=== PATIENT | male | born 1965 | race Caucasian/White ===

== ENCOUNTER → 2024-08-15 | Outpatient (CLI) | payer BC, SELFPAY ==
--- NOTE | 2024-08-15 15:20 | XR_ITS ---
Examination: Sacroiliac joints 3 views TECHNIQUE: AP, ABRAHAM KHMER sacroiliac joints 3 views Exam date and time: August 15, 2024 1543 hours INDICATIONS: Sacral pain chronic years FINDINGS: Mild bilateral sacroiliitis Symmetrical sacral foramina No sacral fracture IMPRESSION: Mild bilateral sacroiliitis
--- NOTE | 2024-08-15 15:20 | XR_ITS ---
Examination: Cervical spine 3 views Technique one AP lateral coned AP odontoid cervical spine 3 views Exam date and time: August 15, 2024 1538 hours INDICATIONS: Neck pain years, status post cervical spine surgery 2012 FINDINGS: Cervical fusion C4-C6 with anatomic alignment Mild cervical spondylosis No cervical fracture Mild to moderate degenerative disc disease C3-C4 Intact odontoid IMPRESSION: Cervical fusion C4-C6 with anatomic alignment Mild to moderate degenerative disc disease C3-C4
--- NOTE | 2024-08-15 15:20 | XR_ITS ---
Examination: Lumbar spine 3 views Technique one AP lateral coned lateral lower lumbar spine 3 views Exam date and time: August 15, 2024 1540 hours INDICATIONS: Low back pain years. FINDINGS: Adequate alignment lumbar vertebral bodies No lumbar fracture Mild to moderate lumbar degenerative disc disease, most severe L5-S1 No spondylolisthesis IMPRESSION: Mild to moderate diffuse lumbar degenerative disc disease, most severe L5-S1
[2024-08-15 17:14] LABS: C-Reactive Protein < 0.4 mg/dL (0.0-0.9); Uric Acid 7.1 mg/dL (3.7-9.2)
[2024-08-15 17:52] LABS: Sed Rate (ESR) 7 mm/hr (0-20)
[2024-08-16 14:28] LABS: RA Screen Negative (Negative)
[2024-08-21 06:31] LABS: CCP Antibody (IgG)* <16 Units; HLA-B27 Antigen* NEGATIVE (NEGATIVE)
== END | disposition home or self-care (01) ==
LOC: CDIM 15:03 → COPL 15:50
PROVIDERS: PCP Family Medicine; Referring Provider Nurse Practitioner Family; Visit Provider Radiology Diagnostic Radiology
DX: M50.31 Other cervical disc degeneration, high cervical region (principal); Z98.890 Other specified postprocedural states; M51.379 Other intervertebral disc degeneration, lumbosacral region without mention of lumbar back pain or lower extremity pain; M46.1 Sacroiliitis, not elsewhere classified; M19.90 Unspecified osteoarthritis, unspecified site
CPT/HCPCS: 36415; 72040; 72100; 72202; 84550; 85652; 86140; 86200; 86430; 86812

== ENCOUNTER → 2024-10-18 | Outpatient (CLI) | payer BC, SELFPAY ==
--- NOTE | 2024-10-18 14:45 | XR_ITS ---
No Examination: MRI sacrum, without contrast Date and time of exam 10/18/2024 at 1504 hrs. Indications: Sacral pain decreased range of motion 10 years Technique: Multiple axial sagittal and coronal images of the sacrum have been obtained with the Siemens high-resolution 1.5 Mireya MRI scanner. Images obtained include T2-weighted fat-suppressed sagittal sections, TR 3500, TE 46, T2 weighted coronal fat suppressed images, TR 3050, TE 84, T2-weighted transverse fat suppressed images, TR 3260, TE 63, proton density transverse images, TR 4720 TE 46, and T1 weighted coronal images, TR 560, TE 13. Findings: Satisfactory alignment sacrococcygeal segments No presacral edema L5-S1 4 mm central lumbar disc bulge No cortical bone destruction Adequate marrow signal visualized osseous structures Impression: L5-S1 4 mm central lumbar disc bulge, consider MRI lumbar spine without contrast follow-up
== END | disposition home or self-care (01) ==
PROVIDERS: PCP Family Medicine; Referring Provider Nurse Practitioner Family; Visit Provider Nurse Practitioner Family
DX: M51.379 Other intervertebral disc degeneration, lumbosacral region without mention of lumbar back pain or lower extremity pain (principal)
CPT/HCPCS: 72195

== ENCOUNTER → 2024-12-16 | Outpatient (CLI) | payer BC, SELFPAY ==
[2024-12-16 07:15] LABS: Quantiferon-TB* See Sep Rpt
[2024-12-16 08:39] LABS: Basophils % (Auto) 0 % (0-2.5); Eosinophils % (Auto) 1 % (0-10); Hematocrit 39.1 % (41.0-53.0); Hemoglobin 13.6 g/dL (13.5-16.0); Immature Granulocytes % (Auto) 0 % (0-0); Immature Granulocytes Auto 0.01 Thou/mm3 (0.00-0.00); Lymphocytes # (Auto) 1.8 Thou/mm3 (1.0-4.8); Lymphocytes % (Auto) 39 % (10-50); Mean Corpuscular HGB Conc 34.8 g/dl (31.0-37.0); Mean Corpuscular Hemoglobin 30.6 pg (25.0-35.0); Mean Corpuscular Volume 88 fL (80-100); Monocytes # (Auto) 0.3 Thou/mm3 (0.0-0.8); Monocytes % (Auto) 7 % (0-12); Neutrophils # (Auto) 2.4 Thou/mm3 (1.8-7.7); Neutrophils % (Auto) 52 % (37-80); Nucleated Red Blood Cell % 0 /100 WBC (0); Platelet Count 173 Thou/mm3 (140-440); RDW Standard Deviation 43.6 fL (35.1-43.9); Red Blood Count 4.45 Miln/mm3 (4.50-5.90); White Blood Count 4.6 Thou/mm3 (3.8-10.6)
[2024-12-16 08:57] LABS: Sed Rate (ESR) 4 mm/hr (0-20)
[2024-12-16 09:24] LABS: Alanine Aminotransferase 22 U/L (10-49); Albumin, Serum 4.1 gm/dL (3.5-5.0); Albumin/Globulin Ratio 1.9 (1.2-2.2); Alkaline Phosphatase 63 U/L (46-116); Anion Gap 8 (7-16); Aspartate Amino Transferase 17 U/L (0-34); BUN/Creatinine Ratio 18 Ratio (12-20); Bilirubin,Total 0.6 mg/dL (0.3-1.2); Blood Urea Nitrogen 24 mg/dL (9-23); C-Reactive Protein < 0.5 mg/dL (0.0-0.9); Calcium 8.2 mg/dL (8.3-10.6); Calcium (Corrected) 8.2 mg/dL (8.5-10.1); Carbon Dioxide 27.3 mMol/L (20.0-31.0); Chloride 107 mMol/L (98-107); Creatinine (Component) 1.3 mg/dL (0.6-1.3); Globulin 2.2 gm/dL (2.3-3.5); Glucose 105 mg/dL (74-106); Osmolality,Calculated 287 (275-295); Potassium 4.2 mMol/L (3.4-5.1); Sodium 142 mMol/L (136-145); Total Protein 6.3 gm/dL (5.7-8.2); eGFR > 60 See Note
[2024-12-16 09:45] LABS: Hepatitis A Antibody IgM Non Reactive (Non React); Hepatitis B Core Antibody IgM Non Reactive (Non React); Hepatitis B Surface Antigen Non Reactive (Non React); Hepatitis C Antibody Non Reactive (Non React)
[2024-12-16 14:43] LABS: Cocci Serology, IgM Negative (Negative)
[2024-12-17 14:11] LABS: Cocci Serology, IgG Negative (Negative)
== END | disposition home or self-care (01) ==
PROVIDERS: PCP Family Medicine; Referring Provider Internal Medicine Rheumatology; Visit Provider Internal Medicine Rheumatology
DX: M45.7 Ankylosing spondylitis of lumbosacral region (principal)
CPT/HCPCS: 36415; 80053; 80074; 85025; 85652; 86140; 86331; 86480; 86635

== ENCOUNTER → 2024-12-20 | Outpatient (CLI) | payer BC, SELFPAY ==
[2024-12-20 08:43] LABS: Glucose Estimated Average 117 mg/dL (80-131); Hemoglobin A1C 5.7 % Hgb (4.8-6.0)
[2024-12-20 08:46] LABS: Prostate Specific Antigen 1.28 ng/mL (0-4.00)
[2024-12-20 08:51] LABS: Vitamin B12 260 pg/mL (211-911)
[2024-12-20 08:54] LABS: Basophils % (Auto) 0 % (0-2.5); Eosinophils % (Auto) 1 % (0-10); Hematocrit 39.6 % (41.0-53.0); Hemoglobin 13.9 g/dL (13.5-16.0); Immature Granulocytes % (Auto) 0 % (0-0); Immature Granulocytes Auto 0.02 Thou/mm3 (0.00-0.00); Lymphocytes # (Auto) 1.6 Thou/mm3 (1.0-4.8); Lymphocytes % (Auto) 33 % (10-50); Mean Corpuscular HGB Conc 35.1 g/dl (31.0-37.0); Mean Corpuscular Volume 88 fL (80-100); Monocytes # (Auto) 0.3 Thou/mm3 (0.0-0.8); Monocytes % (Auto) 7 % (0-12); Neutrophils # (Auto) 2.8 Thou/mm3 (1.8-7.7); Neutrophils % (Auto) 59 % (37-80); Nucleated Red Blood Cell % 0 /100 WBC (0); Platelet Count 186 Thou/mm3 (140-440); RDW Standard Deviation 44.2 fL (35.1-43.9); Red Blood Count 4.48 Miln/mm3 (4.50-5.90); White Blood Count 4.8 Thou/mm3 (3.8-10.6)
[2024-12-20 08:59] LABS: Alanine Aminotransferase 20 U/L (10-49); Albumin, Serum 4.2 gm/dL (3.5-5.0); Albumin/Globulin Ratio 1.8 (1.2-2.2); Alkaline Phosphatase 60 U/L (46-116); Anion Gap 7 (7-16); Aspartate Amino Transferase 19 U/L (0-34); BUN/Creatinine Ratio 14 Ratio (12-20); Bilirubin,Total 1.1 mg/dL (0.3-1.2); Blood Urea Nitrogen 18 mg/dL (9-23); Calcium 8.7 mg/dL (8.3-10.6); Calcium (Corrected) 8.7 mg/dL (8.5-10.1); Carbon Dioxide 27.2 mMol/L (20.0-31.0); Cardiac Risk Estimate 3.4 RATIO (4.0-6.7); Chloride 107 mMol/L (98-107); Cholesterol 196 mg/dL (132-200); Creatinine (Component) 1.3 mg/dL (0.6-1.3); Globulin 2.4 gm/dL (2.3-3.5); Glucose 104 mg/dL (74-106); HDL Cholesterol 57 mg/dL (40-60); LDL Cholesterol,Calculated 115 mg/dL (0-130); Osmolality,Calculated 283 (275-295); Potassium 4.1 mMol/L (3.4-5.1); Sodium 141 mMol/L (136-145); Total Protein 6.6 gm/dL (5.7-8.2); Triglycerides 119 mg/dL (30-150); eGFR > 60 See Note
== END | disposition home or self-care (01) ==
LOC: COPL 07:18
PROVIDERS: PCP Family Medicine; Referring Provider Registered Nurse; Visit Provider Registered Nurse
DX: R73.03 Prediabetes (principal); R79.89 Other specified abnormal findings of blood chemistry
CPT/HCPCS: 36415; 80053; 80061; 82306; 82607; 83036; 84153; 85025

== ENCOUNTER → 2025-01-30 | Outpatient (CLI) | payer BC, SELFPAY ==
--- NOTE | 2025-01-30 10:00 | XR_ITS ---
Examination: CT abdomen without intravenous contrast. Coronal 2-D reconstructions. Sagittal 2-D reconstructions. Date and time of exam:January 30, 2025 0958 hours INDICATIONS: Epigastric pain 2 months, diagnosis diaphragmatic hernia CTDI: vol (mGy): 10.4 DLP: (mGycm): 132 Technique: Axial images of the abdomen have been obtained, 3 mm slice thickness, without intravenous contrast 2-D sagittal coronal reconstructions Low dose protocols were performed. One or more of the following dose reduction techniques were used; automated exposure control, adjustment of the mA and/or KV according to patient size, use of iterative reconstruction technique. Findings: No focal liver or splenic lesions No gallstones No pancreatic or adrenal mass Mild renal parenchymal scar formation No renal or ureteral calculi, no hydronephrosis Aorta normal size No pericecal inflammatory change No bowel obstruction IMPRESSION: Mild renal parenchymal scar formation
== END | disposition home or self-care (01) ==
PROVIDERS: PCP Registered Nurse; Referring Provider Registered Nurse; Visit Provider Registered Nurse
DX: N28.89 Other specified disorders of kidney and ureter (principal)
CPT/HCPCS: 74150

== ENCOUNTER → 2025-03-31 | Outpatient (CLI) | payer BC, SELFPAY ==
[2025-03-31 08:55] LABS: Glucose, Fasting 101 mg/dL (74-106)
[2025-03-31 08:58] LABS: Glucose 1/2 Hour 150 mg/dL (110-170)
[2025-03-31 09:41] LABS: Glucose 1 Hour 145 mg/dL (120-170)
[2025-03-31 11:00] LABS: Glucose 2 Hour 98 mg/dL (70-120)
[2025-03-31 11:09] LABS: Glucose 3 Hour 100 mg/dL (70-120)
== END | disposition home or self-care (01) ==
LOC: COPL 07:03
PROVIDERS: PCP Family Medicine; Referring Provider Physician Assistant; Visit Provider Physician Assistant
DX: R53.83 Other fatigue (principal)
CPT/HCPCS: 36415; 82951; 82952

== ENCOUNTER 2025-04-18 11:00 | Day surgery (SDC) | payer BC, SELFPAY ==
[2025-04-17 14:54] VITALS: BMI 33.7
[2025-04-18] VITALS (10 sets, daily range): BP systolic 120–150; BP diastolic 68–92; PULSE 65–71; RESP 10–18; TEMP 36.9–37.1; O2SAT 94–100; BMI 33.0
[2025-04-18] MEDS: SODIUM CHLORIDE 0.9% 500 ML 500 ML 20 ML IV (11:59)
[2025-04-18] MEDS: BENZOCAINE 20% (Hurricaine) SPRAY 1 DOSE TOP (11:59)
[2025-04-18] MEDS: MIDAZOLAM INJ 1 MG/ML VIAL 2 ML (ASD USE ONLY) 2 MG IVP (12:03)
[2025-04-18] MEDS: fentaNYL CIT INJ 50 mCg/ML AMP 2ML (ASD USE ONLY) IVP (12:03)
== END 2025-04-18 12:50 | disposition home or self-care (01) ==
PROVIDERS: PCP Registered Nurse; Referring Provider Specialist; Visit Provider Specialist
PROC: (CPT 43239; principal; 2025-04-18 12:45)
DX: K22.10 Ulcer of esophagus without bleeding (principal); K29.50 Unspecified chronic gastritis without bleeding
CPT/HCPCS: 43239; A4649; J1200; J2250; J3010; J7999; A9270

== ENCOUNTER → 2025-05-09 | Outpatient (CLI) | payer BC, SELFPAY ==
--- NOTE | 2025-05-09 07:09 | XR_ITS ---
Examination: Abdomen sonogram, Limited Date and time of exam: May 09, 2025, 0715 hrs. Indications: Abnormal liver function tests on laboratory examination December 20, 2024 Technique: Real-time whiteside scale transabdominal sonographic images of the upper abdomen obtained. Findings: Negative for gallstones Gallbladder wall 0.42 cm no edema Common bile duct 0.3 cm Pancreatic head 3.0 cm Liver 17.1 cm fatty infiltration Normal hepatopedal portal venous flow Patent IVC Impression: Negative for gallstones Borderline thickening gallbladder wall 0.42 cm, no edema, clinical correlation advised Consider HIDA scan with ejection fraction follow-up as clinically warranted Mild hepatomegaly fatty infiltration no focal liver lesions
== END | disposition home or self-care (01) ==
LOC: COPL 06:54 → CDIM 06:56
PROVIDERS: PCP Family Medicine; Referring Provider Specialist; Visit Provider Specialist
DX: K82.8 Other specified diseases of gallbladder (principal); K76.0 Fatty (change of) liver, not elsewhere classified
CPT/HCPCS: 76705

== ENCOUNTER 2025-05-12 12:20 | Emergency (ER) | payer BC, SELFPAY ==
--- NOTE | 2025-05-12 12:33 | PD.EDALLER ---
ED Allergic Reaction RME/HPI General Chief complaint: Allergic Reaction Stated complaint: MULTIPLE BEE STINGS; DIFFICULTY BREATHING Time Seen by Provider: 05/12/25 12:35 Arrival date/time: 05/12/25 12:20 RME / HPI RME / HPI narrative: 59 year old male with history of hypertension presents to the ED for evaluation of possible allergic reaction. 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 Reportedly was able to remove the stingers soon after being stung. In the ED complains of a funny sensation in his throat and feeling congested. Denies any history of bee sting allergies/reactions. Denies difficulty breathing or swelling. Related Data Home Medications ?Medication ?Instructions ?Recorded ?Confirmed etanercept 50 mg/mL (1 mL) 50 mg subcut QWEEK 04/18/25 04/18/25 subcutaneous pen injector (Enbrel SureClick) hydrocodone 10 mg-acetaminophen 1 tab PO Q4H PRN pain 04/18/25 04/18/25 325 mg tablet Held on 04/18/25. Instructions: Resume on 04/19/25. meloxicam 15 mg tablet 15 mg PO DAILY 04/18/25 04/18/25 Held on 04/18/25. Instructions: Resume on 04/19/25. propranolol 60 mg capsule,24 60 mg PO Q24H 04/18/25 04/18/25 hr,extended release rimegepant 75 mg disintegrating 75 mg PO EVERYOTHERDAY PRN 04/18/25 04/18/25 tablet (Nurtec ODT) migraine headache Allergies Allergy/AdvReac Type Severity Reaction Status Date / Time nut - unspecified Allergy Severe Difficulty Verified 05/12/25 12:22 Breathing latex Allergy Intermediate Rash Verified 05/12/25 12:22 BEE STINGS Allergy Severe Difficulty Uncoded 05/12/25 12:23 Breathing Review of Systems Review of Systems Systems Reviewed: All systems reviewed, normal except as documented Past Medical History Past Medical History NEUROLOGIC: Positive Neurological Disorders and Migraine CARDIAC: Positive Cardiac Disorders and Hypertension RESPIRATORY: Positive Sleep Apnea MUSCULOSKELETAL: Positive Musculoskeletal Disorders Social History SMOKING STATUS: Never smoker ED Exam Narrative Physical exam: GENERAL APPEARANCE: alert and oriented x 4, well-developed, well-nourished, mild plethoric appearance, no facial swelling HEENT: Normocephalic, atraumatic; pupils equal, round, reactive to light; EOMI; mucous membranes pink, moist; oropharynx clear; no tongue swelling NECK: Supple LUNGS: No stridor, no wheezing, CTABL; no rales, no rhonchi HEART: Regular rate, regular rhythm; normal S1, S2; no murmurs ABDOMEN: non distended; normal BS; soft, no tenderness, no guarding, no rebound; no masses, no organomegaly, no hernia BACK: no CVA tenderness EXTREMITIES: atraumatic; no edema NEUROLOGIC: awake; alert and oriented x4; cranial nerves II-XII grossly intact; no focal sensory or motor deficits PSYCHIATRIC: appropriate mood and affect SKIN: warm, dry, normal color; no rashes Course Course Course Narrative: On reassessment patient complains of feeling nauseated and left arm itchiness though symptoms have improved. Plan to feed and ambulate pt prior to DC home. Patient able to ambulate without difficulty and tolerated po well. Will DC home. Quality Measures none Orders Category Date Time Status DiphenhydrAMINE INJ [Benadryl Inj] Med 05/12/25 12:32 Discontinued 50 mg IVP X1 ONE Famotidine Inj [Pepcid Inj] Med 05/12/25 12:32 Discontinued 20 mg IVP X1 ONE MethylPREDNISolone.* [SoluMEDROL Inj] Med 05/12/25 12:32 Discontinued 125 mg IVP X1 ONE Vital Signs Vital signs: Vital Signs Temperature 98.5 F 05/12/25 12:35 Pulse Rate 78 05/12/25 12:35 Respiratory Rate 22 H 05/12/25 12:35 Blood Pressure 147/81 H 05/12/25 12:35 Pulse Oximetry (%) 97 05/12/25 12:35 Oxygen Delivery Method Room Air 05/12/25 12:35 Pulse ox is 97% on room air which is adequate. Allergic Reaction MDM Narrative MDM Narrative:: Pamela Zuluaga am scribing for and in the presence of Dr. Lawson. Patient data External records reviewed:: [facility] previous records Clinical information provided by:: patient Social determinants that could affect healthcare access:: none Patient has the following chronic illnesses:: Hypertension How is presenting disease/condition affected by chronic disease/condition?: uneffected by Evaluation data The following diagnostics were reviewed and interpreted by me:: other (specify) (No diagnostics ordered ) Lab and/or radiology exams considered but not ordered:: None Interpretation Summary: N/A Medications / Prescriptions Medications or Prescriptions considered but not ordered:: None Medication administrations:: Medication Administration History Discontinued Medications Diphenhydramine HCl (Diphenhydramine Inj 50 Mg/Ml Vial) 50 mg IVP X1 ONE Stop: 05/12/25 12:33 Last Admin: 05/12/25 12:39 Dose: 50 mg Documented By: TM Famotidine (Famotidine Inj 10 Mg/Ml Vial 2 Ml) 20 mg IVP X1 ONE Stop: 05/12/25 12:33 Last Admin: 05/12/25 12:39 Dose: 20 mg Documented By: TM Methylprednisolone Sodium Succinate (Methylprednisolone Sod Succ 62.5 Mg/Ml 2ml Vial) 125 mg IVP X1 ONE Stop: 05/12/25 12:33 Last Admin: 05/12/25 12:39 Dose: 125 mg Documented By: TM See above Consultations Consultation(s) initiated? (list below): No Diagnosis Most likely diagnosis given after review of the tests above:: Bee sting Admission Indicated Admission indicated?: not indicated Admission Request Was there a request for admission?: No Disposition Plan Disposition Plan: Discharge Discharge Attestation Discharge Attestation: The patient and all family members were given an opportunity to ask questions and understood the discharge instructions. Discharge instructions specifically effects, indications for sooner follow up or return to the emergency department, and the expected course of current diagnosis. Patient condition: Stable Discharge Plan Plan Patient Disposition: HOME (Self Care) Prescriptions/Referrals Prescriptions/Med Rec: No Action Nurtec ODT 75 mg tablet,disintegrating 75 mg PO EVERYOTHERDAY PRN (Reason: migraine headache) Patient Comments: DISSOLVE 1 TABLET ON TONGUE EVERY OTHER DAY NEEDED FOR 30 DAYS propranolol 60 mg capsule,extended release 24 hr 60 mg PO Q24H Patient Comments: TAKE 1 CAPSULE BY MOUTH EVERY DAY hydrocodone-acetaminophen 10-325 mg tablet 1 tab PO Q4H PRN (Reason: pain) Patient Comments: TAKE 1 TABLET BY MOUTH EVERY 4 HOURS NEEDED meloxicam 15 mg tablet 15 mg PO DAILY Patient Comments: TAKE 1 TABLET BY MOUTH EVERY DAY Enbrel SureClick 50 mg/mL (1 mL) pen injector 50 mg SUBCUT QWEEK Referrals: No Primary/Family,Physician [Primary Care Provider] - In 1 week Problem List Clinical Impression: Bee sting Patient/Caregiver Discharge Instructions Education Materials: ED BEE STING General Allergic Rxn Print Language: Peruvian Stand Alone Forms: Claudia Award Info., Patient Portal Info Letter
[2025-05-12 12:35] VITALS: BP 147/81; PULSE 78; RESP 22; TEMP 36.9; O2SAT 97
[2025-05-12] MEDS: FAMOTIDINE INJ 10 MG/ML VIAL 2 ML 20 MG IVP (12:39)
[2025-05-12] MEDS: MethylPREDNISolone SOD SUCC 62.5 MG/ML 2ML VIAL 125 MG IVP (12:39)
--- NOTE | 2025-05-12 13:12 | PC.NURSE ---
PT CAME IN STATED HE GOT STUNG BY APPROXIMATELY 15 BEES, PTS FACE WAS RED, HAD SOME SWELLING, STATED HIS THROAT FELT LIKE IT WAS CLOSING, HAD A PERSISTENT COUGH. aFTER MEDICATION, FACE IS NO LONGER RED, SWELLING HAS GONE DOWN AND COUGHING HAS STOPPED. THERE WAS ONE STINGER THAT WAS IN HIS SCALP, LEFT SIDE BEHIND HIS EAR, THIS RN REMOVED IT WITH TWEEZERS.
[2025-05-12 14:11] VITALS: BP 130/88; PULSE 68; RESP 16; TEMP 36.7; O2SAT 97
== END 2025-05-12 16:11 | disposition home or self-care (01) ==
PROVIDERS: Emergency Provider Emergency Medicine
DX: T63.441A Toxic effect of venom of bees, accidental (unintentional), initial encounter (principal); R06.00 Dyspnea, unspecified
CPT/HCPCS: 96374; 96375; 99283; J1200; J2919; J3490